=== PATIENT | female | born 2000 | race Caucasian/White ===

== ENCOUNTER 2024-05-02 18:26 | Emergency (ER) | payer BC, SELFPAY ==
[2024-05-02 18:28] VITALS: BP 142/92
--- NOTE | 2024-05-02 20:57 | ED.GENMED ---
History of Present Illness
General
Chief Complaint: Abdominal Pain
Source: patient
Exam Limitations: none
Time Seen by Provider: 05/02/24 20:43
Nursing documentation reviewed up to this point in time: agreed with
History of Present Illness
History of Present Illness:
23-year-old female presents emergency room complaining of lower abdominal/pelvic pain since this morning. It feels like very bad period cramps. She took Pamprin, which usually helps her period, but it did not help this time.
Past History
Past History
ED Past Medical History: None
ED Past Surgical History: None
Social History
Tobacco: Non-smoker
Alcohol: None
Drug: None
Personal: Single
Living: with family
Review of Systems
Review of Systems
Allergies reviewed?: Yes
All Other Systems: Not applicable
Constitutional: Reports no symptoms
EENT: Reports no symptoms
Respiratory: Reports no symptoms
Cardiac: Reports no symptoms
ABD/GI: Reports abdominal pain
: Reports bleeding (current menses)
Musculoskeletal: Reports no symptoms
Skin: Reports no symptoms
Neurological: Reports no symptoms
Endocrine: Reports no symptoms
Hematologic/Lymphatic: Reports no symptoms
Psychiatric: Reports no symptoms
Phy Exam
Physical Exam
Physical Exam:
Physical Exam
General: no apparent distress, not acutely ill
Neck: supple. no meningeal signs. normal posterior pharynx
Heart: s1/s2 regular rate and rhythm, no murmur. equal radial
pulses.
HEENT: Pupils equal round reactive to light, EOMI
Lungs: no acute respiratory distress. clear bilaterally
Abdomen: normal bowel sounds. Mild left lower abdominal tenderness tender. no CVAT
Neuro: alert and oriented. no focal neurological deficits cranial nerves II through XII intact
Skin: no rash
Psychiatric: well kept. interactive and cooperative
Extremities: no edema. no calf tenderness. negative homans. good distal pulses
Course
Orders/Labs/Results
Orders:
Orders
05/02/24 20:55
IV Insert/Care/Rem.- Treatment PRN
US Pelvis Only (non-obstetric) Urgent
Comment:
Reason For Exam: lower abd/pelvis pain
05/02/24 20:56
Test Result ONCE
05/02/24 21:17
Complete Blood Count/With Diff Urgent
Comprehensive Metabolic Panel Urgent
HCG, Serum Qualitative Screen Urgent
05/02/24 23:02
Ketorolac [Toradol] 15 mg IV NOW STA
Abnormal Lab Results
05/02/24
21:17
MCH 31.4 H pg
(27.0-31.0)
MPV 10.9 H fL
(7.4-10.4)
Absolute Neuts (auto) 6.7 H 10^3/uL
(1.4-6.5)
05/02/24 21:17
05/02/24 21:17
Vital Signs
Initial and Last Documented VS:
Initial Vital Signs
Temp Pulse Resp BP Pulse Ox
98.3 F 99 18 142/92 100
05/02/24 18:28 05/02/24 18:28 05/02/24 18:28 05/02/24 18:28 05/02/24 18:28
Last Documented Vital Signs
Temp Pulse Resp BP Pulse Ox
98.3 F 70 16 116/77 100
05/02/24 18:28 05/02/24 23:17 05/02/24 23:17 05/02/24 23:17 05/02/24 23:17
MDM/Problems Addressed
Differential Diagnosis Includes:
Ovarian torsion, appendicitis
MDM/Problems Addressed:
23-year-old female with pelvic cramping, pelvic pain. No signs of ovarian torsion. Patient stable for discharge. Do not suspect appendicitis.
*Radiology
Radiology exam reviewed: radiology read reviewed (Ultrasound pelvis no acute findings)
*Pulse Oximetry
Patient hypoxic: no
*Critical Care Note
Total Time (30-74mins, 75-104mins- exclusive of procedures): Not Applicable
Data Reviewed
Further Testing Considered But Not Given:
CT abdomen pelvis not indicated
Patient Management
Social determinants of health affecting care: Living situation and Strong social support
Escalation/DeEscalation of care consider admission/obs:
Admit not indicated
ED Attending Note
-
Portions of this chart may have been created with voice recognition software.� Occasional wrong word or��sound alike� substitutions may have occurred due to the inherent limitations of voice recognition software.
Discharge Plan
Departure
Patient Disposition: Home (Routine Discharge)
Date of Disposition: 05/02/24
Time of Disposition: 23:14
Patient with high blood pressure during this ER visit?: Yes
Condition: Good
Discharge Problem:
Pelvic pain
Instructions: Pelvic Pain, Abdominal Pain, BLOOD PRESSURE
Referrals:
Tereza Mancini MD [Active] - Call in 1-3 days for appt
Kyle Lucas MD [Family Provider] -
Interventions
Interventions:
*Risk Screen - Suicide Last Done: 05/02/24 18:28
*General Assessment Last Done: 05/02/24 18:28
*Neglect/Abuse Screening Last Done: 05/02/24 18:28
ED- Fall Risk Assessment Last Done: 05/02/24 21:25
*ED COVID-19 Vaccine History Last Done: 05/02/24 18:28
*Nursing Disposition Last Done: 05/02/24 23:19
VP-Rgotue-Hkfbxgusok Assessment Last Done: 05/02/24 21:25
Discharge Date and Time
Discharge Date/Time: 05/02/24 23:20
Print Language: [place]
[2024-05-02 21:18] VITALS: BMI 18.2
[2024-05-02 21:27] LABS: % Basophils 0.5 % (0-2); % Eosinophils 0.5 % (0-6); % Immature Granulocytes 0.3 % (0-0.5); % Lymphocytes 27.9 % (20.5-51.1); % Monocytes 5.5 % (1.7-9.3); % Neutrophils 65.3 % (42.2-75.2); Absolute Basophils 0.1 10^3/uL (0-0.2); Absolute Eosinophils 0.1 10^3/uL (0-0.7); Absolute Lymphocytes 2.9 10^3/uL (1.2-3.4); Absolute Monocytes 0.6 10^3/uL (0.1-0.6); Absolute Neutrophils 6.7 10^3/uL (1.4-6.5); Hematocrit 37.6 % (37.0-47.0); Hemoglobin 13.4 g/dL (12.0-16.0); Mean Corp Hgb Conc. 35.6 g/dL (33.0-37.0); Mean Corpuscular Hgb 31.4 pg (27.0-31.0); Mean Corpuscular Volume 88.1 fL (81.0-99.0); Mean Platelet Volume 10.9 fL (7.4-10.4); Nucleated Red Blood Cells % 0 %; Platelet Count 290 10^3/uL (130-400); Red Blood Cell Count 4.27 10^6/uL (4.20-5.40); Red Cell Dist. Width 12.1 % (11.5-14.5); White Blood Cell Count 10.2 10^3/uL (4.8-10.8)
[2024-05-02 21:39] LABS: HCG, Serum Qualitative Screen Negative
[2024-05-02 21:44] LABS: ALT (SGPT) 15 U/L (0-35); AST (SGOT) 19 U/L (14-36); Albumin 4.9 g/dl (3.5-5.0); Alkaline Phosphatase 62 U/L (38-126); Blood Urea Nitrogen 13 mg/dl (7-17); Calcium 9.5 mg/dl (8.4-10.2); Carbon Dioxide 24 mmol/L (22-30); Chloride 104 mmol/L (98-107); Estimated Creatinine Clearance 109 ml/min; Glucose 96 mg/dl (70-99); Potassium 3.9 mmol/L (3.5-5.1); Sodium 142 mmol/L (135-145); Total Bilirubin 0.5 mg/dl (0.2-1.3); Total Protein 7.4 g/dl (6.3-8.2); eGFR > 60.00
[2024-05-02 22:00] VITALS: BP 129/76
[2024-05-02] MEDS: TORADOL 15 MG IV (23:13)
[2024-05-02 23:17] VITALS: BP 116/77
== END 2024-05-02 23:20 | disposition home or self-care (01) ==
LOC: EMR 18:26
PROVIDERS: EMERGENCY PHYSICIAN Emergency Medicine; FAMILY PHYSICIAN Pediatrics Adolescent Medicine
DX: R10.2 Pelvic and perineal pain (principal)
CPT/HCPCS: 99284; 96374; 76856; 80053; 84703; 85025

== ENCOUNTER 2025-01-20 17:33 | Emergency (ER) | payer BC, SELFPAY ==
[2025-01-20 17:34] VITALS: BP 127/73
[2025-01-20 18:14] LABS: Hematocrit 41.4 % (37.0-47.0); Hemoglobin 14.7 g/dL (12.0-16.0); Mean Corp Hgb Conc. 35.5 g/dL (33.0-37.0); Mean Corpuscular Volume 86.8 fL (81.0-99.0); Nucleated Red Blood Cells % 0 %; Platelet Count 194 10^3/uL (130-400); Red Cell Dist. Width 11.7 % (11.5-14.5)
[2025-01-20 18:21] LABS: ALT (SGPT) 18 U/L (0-35); AST (SGOT) 26 U/L (14-36); Albumin 5.0 g/dl (3.5-5.0); Alkaline Phosphatase 78 U/L (38-126); Blood Urea Nitrogen 12 mg/dl (7-17); Calcium 9.7 mg/dl (8.4-10.2); Carbon Dioxide 22 mmol/L (22-30); Chloride 101 mmol/L (98-107); Glucose 115 mg/dl (70-99); Potassium 3.8 mmol/L (3.5-5.1); Sodium 135 mmol/L (135-145); Total Protein 7.8 g/dl (6.3-8.2); eGFR > 60.00
[2025-01-20 22:15] VITALS: BMI 18.7
[2025-01-20 22:34] LABS: Urine Character Clear (Clear)
[2025-01-20 22:38] LABS: HCG, Serum Qualitative Screen Negative
[2025-01-20 22:50] LABS: Urine Squamous Cell 16-20 /LPF (Few)
[2025-01-20 22:52] LABS: Urine White Cell 30-40 /HPF (0-5)
[2025-01-20 23:00] VITALS: BP 98/61
--- NOTE | 2025-01-21 00:17 | ED.GENMED ---
History of Present Illness
General
Chief Complaint: Abdominal Pain
Source: patient and previous radiology exam (Unremarkable pelvic ultrasound April 2024)
Exam Limitations: none
Time Seen by Provider: 01/20/25 22:05
Nursing documentation reviewed up to this point in time: agreed with
History of Present Illness
History of Present Illness:
The patient is a 24-year-old female who presents with fever and generalized body aches that began this morning. The fever was measured at 100�F. The patient reports feeling very fatigued and experiencing body aches that were uncomfortable but did
not interfere significantly with breathing. There are no associated symptoms of sore throat, congestion, cough, or dysuria. The patient notes some right-sided abdominal pain that has been present since yesterday. She describes it as a dull pain
which occasionally sharpens around the umbilical area and where menstrual cramps typically occur. The pain is intermittent and primarily located on the right side. The last menstrual period ended three days ago, and it was a regular cycle.
The patient traveled to [place] three weeks ago but otherwise felt well until last evening. There have been no observed rashes and no reported illnesses in the household.
She took Aleve this morning for fever.
She presented to urgent care for evaluation and a urine dip was positive for leukocyte esterase. Oral temperature 100 �F at urgent care. She was given Tylenol at urgent care around 4 PM and sent to the ED for further evaluation.
Past History
Past History
ED Past Medical History: None
ED Past Surgical History: None
Social History
Tobacco: Non-smoker
Alcohol: None
Drug: None
Personal: Single
Living: with family
Employment: Student
Family History
Family History: Other (Noncontributory)
Phy Exam
Physical Exam
Physical Exam:
GENERAL: 24-year-old female appears her stated age, bright and alert, pleasant, appears in no acute distress. Mom is accompanying. She has been afebrile since arrival to the ED. Remains afebrile.
EYE: pupils equal and reactive. anicteric
NECK: Supple, nontender, no meningismus, no significant adenopathy.
ENT: posterior pharynx is clear, oral mucosa is moist. TM clear b/l, nares patent.
CARDIAC: Regular rate and rhythm. no murmur. No rub.
LUNGS: Clear breath sounds bilaterally, no acute respiratory distress, no wheezes/rales/rhonchi
ABDOMEN: Soft, nondistended, minimal tenderness right upper lateral quadrant, right lateral flank region with deep palpation only, no r/g, no cvat. normoactive BS.
NEUROLOGICAL: Alert and oriented x3, no focal neuro deficits. Gait is steady.
SKIN: Warm and dry, normal color, skin intact. No rash.
MUSCULOSKELETAL: No C/C/E. peripheral pulses are full and equal b/l. No palpable tenderness.
PSYCH: Normal and appropriate interaction.
Course
Orders/Labs/Results
Orders:
Orders
01/20/25 17:45
Blood Culture Q20M
SADIE Source: Blood/Venous
Specimen Description:
Comment: Urgent from separate sites. If patient screens positive for possible sepsis
01/20/25 17:51
Complete Blood Count/With Diff Urgent
Comprehensive Metabolic Panel Urgent
HCG, Serum Qualitative Screen Urgent
Comment: ADD ON
Lactic Acid Q4H
Comment: ON ICE, CANCEL 2ND ORDER IF FIRST LACTIC ACID LEVEL <2
Monotest Urgent
Blood Culture Q20M
SADIE Source: Blood/Venous
Specimen Description:
Comment: Urgent from separate sites. If patient screens positive for possible sepsis
01/20/25 22:06
Add On- LAB Urgent
Tests Added?: qual serum HCG
01/20/25 22:28
Urinalysis Reflex To Culture Urgent
Date Specimen was Collected: 01/20/25
Time Specimen was Collected: 22:17
Urine Microscopic Reflex Cult Urgent
Urine Culture Urgent
SADIE Source: U
Specimen Description:
Date Specimen was Collected: 01/20/25
Time Specimen was Collected: 22:17
01/20/25 22:42
CT Abd/pelvis W Iv Cont Urgent
Comment:
Reason For Exam: right sided abd pain, fever x 1 day
01/21/25 00:30
Amoxicillin 875 mg/Clav 125 mg [Augmentin 875 mg/125 mg] 1 tablet PO NOW STA
Abnormal Lab Results
01/20/25 01/20/25
17:51 22:28
WBC 3.5 L 10^3/uL
(4.8-10.8)
MPV 10.9 H fL
(7.4-10.4)
Absolute Lymphs (auto) 0.2 L 10^3/uL
(1.2-3.4)
Neutrophils % 91.6 H %
(42.2-75.2)
Lymphocytes % 4.9 L %
(20.5-51.1)
Glucose 115 H mg/dl
(70-99)
Urine Ketones 1+ A
(Negative)
Leukocyte Esterase Rfl 3+ A
(Negative)
Urine RBC 3-6 A /HPF
(0-2)
Urine WBC (Reflex) 30-40 A /HPF
(0-5)
Urine Bacteria (Reflex) Moderate A
(Negative)
Urine Albumin (Reflex) 2+ A
(Neg - Trace)
01/20/25 17:51
01/20/25 17:51
Vital Signs
Initial and Last Documented VS:
Initial Vital Signs
Temp Pulse Resp BP Pulse Ox
98.5 F 131 18 127/73 98
01/20/25 17:34 01/20/25 17:34 01/20/25 17:34 01/20/25 17:34 01/20/25 17:34
Last Documented Vital Signs
Temp Pulse Resp BP Pulse Ox
98.3 F 131 18 98/61 99
01/20/25 22:15 01/20/25 17:34 01/20/25 17:34 01/20/25 23:00 01/21/25 00:25
MDM/Problems Addressed
Differential Diagnosis Includes:
The Differential Diagnosis includes, in no particular order and is not limited to:
1. Viral infection
2. Urinary tract infection
3. Gastroenteritis
4. Appendicitis
5. Ovarian cyst
6. Pelvic inflammatory disease
7. Endometriosis
8. Kidney infection (pyelonephritis)
9. Musculoskeletal pain
10. Inflammatory bowel disease
MDM/Problems Addressed:
Acute Problems:
1. Fever
2. Generalized body aches
3. Right-sided abdominal pain
Chronic Problems: None mentioned.
Thus far labs are unremarkable. Lactic acid is normal. White blood cell count mildly low at 3.5 which may be viral syndrome in nature. Monospot is negative.
With right-sided abdominal pain however must consider pyelonephritis, cholecystitis, retrocecal appendicitis.
Will check urinalysis with microscopic evaluation with reflex to culture.
Will check CT abdomen pelvis.
Will monitor for return of fever.
*Radiology
Radiology exam reviewed: radiology read reviewed (CT abdomen pelvis is unremarkable. No acute intra-abdominal pathology. Appendix is normal. No hydronephrosis nor nephrolithiasis. Small volume pelvic free fluid appears physiologic.)
*Pulse Oximetry
SaO2: 99
Oxygen Mode of Delivery: Room air
Patient hypoxic: no
*Critical Care Note
Total Time (30-74mins, 75-104mins- exclusive of procedures): Not Applicable
Update Note
Update Note:
00:[address] unremarkable.
Urinalysis with moderate bacteria, 30-40 WBC, 16-20 squamous epithethelials cells thus this could certainly be contaminated urine but concerning for UTI and with flank pain, must consider early pyelonephritis.
Urine culture is pending.
Will start Augmentin for potential pyelonephritis.
Recommend continuing Aleve vs tylenol as needed for fever, aches.
Stay well hydrated on a daily basis.
Prompt follow up with PCP.
ED Attending Note
-
Portions of this chart may have been created with voice recognition software.� Occasional wrong word or��sound alike� substitutions may have occurred due to the inherent limitations of voice recognition software.
Discharge Plan
Departure
Patient Disposition: Home (Routine Discharge)
Date of Disposition: 01/21/25
Time of Disposition: 00:34
Patient with high blood pressure during this ER visit?: No
Condition: Good
Discharge Problem:
Acute febrile illness, early pyelonephritis
Instructions: Urinary tract infection in adults - ED discharge instructions, Fever in adults - ED discharge instructions
Prescriptions:
New
amoxicillin-pot clavulanate 875-125 mg tablet
1 tab PO BID Qty: 14 0RF
Referrals:
NONE,* [Family Provider, Internal Medicine]
Interventions
Interventions:
*Risk Screen - Suicide Last Done: 01/20/25 17:34
*General Assessment Last Done: 01/20/25 17:34
*Neglect/Abuse Screening Last Done: 01/20/25 17:34
*ED- Fall Risk Assessment Last Done: 01/20/25 22:04
*ED COVID-19 Vaccine History Last Done: 01/20/25 22:04
PB-Bcnutx-Lrinldymbv Assessment Last Done: 01/20/25 22:16
Discharge Date and Time
Print Language: [place]
[2025-01-21] MEDS: AUGMENTIN 875 MG/125 MG 1 TABLET PO (01:01)
== END 2025-01-21 01:11 | disposition home or self-care (01) ==
LOC: EMR 17:33
PROVIDERS: Student in an Organized Health Care Education/Training Program; EMERGENCY PHYSICIAN Emergency Medicine
DX: N12 Tubulo-interstitial nephritis, not specified as acute or chronic (principal); R50.9 Fever, unspecified
CPT/HCPCS: 99284; 74177; 80053; 81003; 81015; 83605; 84703; 85025; 86308; 87040; 87086; Q9967